=== PATIENT | female | born 1960 | race Caucasian/White ===

== ENCOUNTER 2018-01-07 20:57 | Emergency (ER) | payer OTHER ==
[~2018-01-07] VITALS: Ht 149.9 cm; Wt 83.9 kg
[2018-01-07 21:06] VITALS: BP 156/84
--- NOTE | 2018-01-07 21:09 | NUR ---
PT AMBULATED TO BED 10 WITH VSS.
--- NOTE | 2018-01-07 21:13 | NUR ---
TO ER BED 3
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
[2018-01-07 23:15] VITALS: BP 148/81
--- NOTE | 2018-01-07 23:15 | NUR ---
Patient discharged with v/s stable. Written and verbal after care instructions given and explained. Patient verbalized understanding. Ambulatory with steady gait. All questions addressed prior to discharge. Advised to follow up with PMD.
== END 2018-01-07 23:15 | disposition home or self-care (01) ==
LOC: MED 20:57
DX: S23.3XXA Sprain of ligaments of thoracic spine, initial encounter (principal); V43.52XA Car driver injured in collision with other type car in traffic accident, initial encounter; Y93.I9 Activity, other involving external motion; Y92.488 Other paved roadways as the place of occurrence of the external cause; Y99.8 Other external cause status
CPT/HCPCS: 99281; 99282